=== PATIENT | female | born 1995 | race Two or more races ===

== ENCOUNTER 2024-06-21 11:01 | Outpatient (CLI) | payer OTHER | END 2024-06-21 11:17 | disposition home or self-care (01) | LOC: PRENATAL 11:01 | PROVIDERS: ATTEND Obstetrics & Gynecology Maternal & Fetal Medicine | DX: O44.00 Complete placenta previa NOS or without hemorrhage, unspecified trimester (principal); Z14.8 Genetic carrier of other disease; Z3A.21 21 weeks gestation of pregnancy ==

== ENCOUNTER 2024-09-10 13:32 | Outpatient (CLI) | payer OTHER | END 2024-09-10 13:33 | disposition home or self-care (01) | LOC: PRENATAL 13:32 | PROVIDERS: ATTEND Obstetrics & Gynecology Maternal & Fetal Medicine | DX: O26.849 Uterine size-date discrepancy, unspecified trimester (principal); O36.8199 Decreased fetal movements, unspecified trimester, other fetus; Z14.8 Genetic carrier of other disease; Z3A.32 32 weeks gestation of pregnancy ==